=== PATIENT | male | born 1975 | race Two or more races ===

== ENCOUNTER 2017-12-26 15:17 | Emergency (ER) | payer MEDICAID ==
[~2017-12-26] VITALS: Ht 177.8 cm; Wt 77.1 kg
[2017-12-26 16:41] VITALS: BP 147/93
[2017-12-26] MEDS ORDERED: AMOX/CLAVULANATE 875 MG TABLET ONE (16:57)
[2017-12-26] MEDS ORDERED: AMOX/CLAVULANATE 875 MG TABLET PO ONE (17:00)
== END 2017-12-26 17:31 | disposition home or self-care (01) ==
LOC: ER 15:26
DX: L03.114 Cellulitis of left upper limb (principal); L03.113 Cellulitis of right upper limb; F17.200 Nicotine dependence, unspecified, uncomplicated
CPT/HCPCS: A4606; Z7610